=== PATIENT | female | born 1995 | race Caucasian/White ===

== ENCOUNTER 2018-12-16 14:30 | Emergency (ER) | payer SELFPAY ==
[~2018-12-16] VITALS: Ht 152.4 cm; Wt 56.7 kg
--- NOTE | 2018-12-16 15:44 | NUR ---
ED Nurse Note: PT BROUGHT IN BY [facility] FROM HOME. AOX4. PT LAYING PEACEFULLY IN BED ON THE PHONE IN NAD. NO FACIAL GRIMACING OR GUARDING NOTED. PT C/O GENERALIZED BODY ACHE, PAIN 10/10 X 3 DAYS. PT AFEBRILE AT BEDSIDE - ORAL TEMP 98.3F. FULL ROM OF ALL EXTREMITIES. PT DENIES COUGH.
[2018-12-16 15:45] VITALS: BP 110/68
--- NOTE | 2018-12-16 15:58 | Emergency Room Report ---
History of Present Illness General Chief Complaint: Flu Like Symptoms Source: Patient Present Illness HPI 23-year-old female patient presents the ER brought in by ambulance complaining of flulike symptoms for the past 3 days. Reports is been taking over-the- counter medications without relief of symptoms. Reports subjective fever at home, patient afebrile currently in the ER. Denies cough. Reports sore throat during this time. Reports generalized abdominal pain. Reports able to tolerate p.o. fluids and foods. Denies vomiting or diarrhea. Denies dysuria, hematuria. Also reports history of concussion 3 months ago, states that she continues to have pain intermittently since that time. Reports imaging of head at that time was negative, denies recent head injury or trauma. Denies vomiting or vision changes. Denies photophobia or phonophobia. Denies constipation. Reports nasal congestion during this time, states she has hx of deviated septum. States not receive flu vaccination this year. Reports generalized aches and pains. Denies recent sexual activity. Allergies: Coded Allergies: No Known Allergies (Unverified , 12/16/18) Patient History Past Medical History: see triage record Now: No Reviewed Nursing Documentation: PMH: Agreed; PSxH: Agreed Nursing Documentation-PMH Past Medical History: No Stated History Review of Systems All Other Systems: negative except mentioned in HPI Physical Exam Vital Signs Date Time Temp Pulse Resp B/P (MAP) Pulse Ox O2 Delivery O2 Flow Rate FiO2 12/16/18 14:46 98.1 92 14 107/67 100 Room Air Sp02 EP Interpretation: reviewed, normal General Appearance: well appearing, no apparent distress, alert, GCS 15, non- toxic Head: normocephalic, atraumatic, other - no sinus TTP Eyes: bilateral eye normal inspection, bilateral eye PERRL ENT: hearing grossly normal, normal pharynx, no angioedema, normal voice, TMs + canals normal, uvula midline, moist mucus membranes, nasal congestion, pharyngeal erythema, tonsillar exudate, other - Uvula midline Neck: full range of motion, no meningismus, no bony tend Respiratory: lungs clear, normal breath sounds, no rhonchi, no respiratory distress, no accessory muscle use, no wheezing, speaking full sentences Cardiovascular #1: regular rate, rhythm, no edema Gastrointestinal: normal bowel sounds, non tender, soft, no mass, non-distended , no guarding, no rebound, other - Negative Rovsing, negative obturator, negative Garces Genitourinary: no CVA tenderness Musculoskeletal: back normal, digits/nails normal, gait/station normal, normal range of motion, non-tender Neurologic: alert, oriented x3, responsive, motor strength/tone normal, sensory intact Skin: no rash Lymphatic: adenopathy Medical Decision Making PA Attestation Dr. Suarez is my supervising Physician whom patient management has been discussed with. Diagnostic Impression: Primary Impression: Urinary tract infection Additional Impressions: Flu-like symptoms Hx of concussion Tonsillitis ER Course Pt presents to ED c/o sore throat and flulike symptoms, history of concussion. DDX considered but are not limited to influenza, viral URI, pneumonia, strep throat, rhinitis, sinusitis, otitis media, otitis externa, UTI, postconcussive syndrome. no uvula deviation, no neck stiffness, no stridor, no tripoding, low suspicion for peritonsillar abscess. No focal neuro deficits, cranial nerves intact as tested, no recent injury or trauma, does not require CT head at this time. Afebrile, no meningismus, low suspicion for meningitis. VITAL SIGNS are WNL, patient is afebrile. ER COURSE: Provided with viscous lidocaine in the ER. Lungs clear to auscultation, no wheezes, rhonci or rales. patient afebrile. Low suspicion for pneumonia, will not order CXR at this time. Tonsillar exudates or pharyngeal erythema noted, no history of cough, likely tonsillitis, will provide patient with antibiotics to treat. UA shows elevated WBCs and moderate bacteria, will provide patient with medication for urinary tract infection. Provide with first dose of antibiotics in the ER. Symptomatic treatment for flulike symptoms. drink plenty of fluids. Salt water gargles for sore throat. Followup with PCP for further treatment and/or referral as needed. Advised patient follow-up with neurologist for further treatment and evaluation of symptoms. Provided with contact information for neurologist. ER precautions given. DISCHARGE: At this time pt is stable for d/c to home. Patient is resting comfortably, in no acute distress, nontoxic appearing. Patient to take medications as instructed Will provide with patient care instructions and any necessary prescriptions. Care plan and follow-up instructions provided. Patient instructed to follow-up with primary care provider in 3 - 5 days. Patient questions asked and answered. Patient reports understanding and agreement to treatment plan. ER precautions given. Patient instructed to return to ER immediately for any new or worsening of symptoms including but not limited to increasing SOB, persistent fever, intractable vomiting. - Please note that this Emergency Department Report was dictated using [employer] technology software, occasionally this can lead to erroneous entry secondary to interpretation by the dictation equipment. Labs Test 12/16/18 16:04 Urine Color Yellow Urine Appearance Slightly cloudy Urine pH 5 (4.5-8.0) Urine Specific [place] 1.025 (1.005-1.035) Urine Protein 2+ (NEGATIVE) Urine Glucose (UA) Negative (NEGATIVE) Urine Ketones 1+ (NEGATIVE) Urine Blood 4+ (NEGATIVE) Urine Nitrite Negative (NEGATIVE) Urine Bilirubin Negative (NEGATIVE) Urine Urobilinogen Normal MG/DL (0.0-1.0) Urine Leukocyte Esterase 2+ (NEGATIVE) Urine RBC 5-10 /HPF (0 - 2) Urine WBC 5-10 /HPF (0 - 2) Urine Squamous Epithelial Cells Few /LPF (NONE/OCC) Urine Bacteria Moderate /HPF (NONE) Urine Mucus Few /LPF (NONE/OCC) Urine HCG, Qualitative Negative (NEGATIVE) Last Vital Signs Date Time Temp Pulse Resp B/P (MAP) Pulse Ox O2 Delivery O2 Flow Rate FiO2 12/16/18 15:45 98.3 86 15 110/68 100 Room Air Status: improved Disposition: HOME, SELF-CARE Condition: Stable Scripts Cephalexin* (KEFLEX*) 500 Mg Capsule 500 MG ORAL EVERY 12 HOURS, #14 CAP 0 Refills Prov: Rajeev Balbuena 12/16/18 Loratadine/Pseudoephedrine (CLARITIN-D 12 HOUR TABLET) 1 Each Tab.er.12h 1 TAB ORAL EVERY 12 HOURS, #24 TAB Prov: Rajeev Balbuena 12/16/18 Guaifen/Phenyleph/Acetaminophn (Sudafed PE Pressure+Pain+Mucus) 1 Each Tablet 1 EACH PO BID, #24 TAB Prov: Rajeev Balbuena 12/16/18 Patient Instructions: Concussion, Adult, [id number], Influenza, Adult, Easy- to-Read, Tonsillitis, [id number], Urinary Tract Infection, [id number] Additional Instructions: Followup with primary care provider and followup with and./or OBGYN. Drink plenty of fluids. Take medications as directed. Follow-up with neurology specialist to discuss concussion symptoms. Salt water gargles Take Tylenol for pain and fever symptoms Drink plenty of water. Take medications as directed. Patient questions asked and answered. ER precautions given, patient instructed to return to ER immediately for any new or worsening of symptoms including but not limited to intractable vomiting, difficulty breathing, inability to eat. Rajeev Balbuena Dec 16, 2018 15:58
[2018-12-16] MEDS ORDERED: Lidocaine 2% Visc 15ml soln ORAL ONE (16:15)
[2018-12-16 16:22] LABS: BILIRUBIN, URINE NEGATIVE (NEGATIVE); GLUCOSE, URINE (UA) NEGATIVE (NEGATIVE); KETONES,URINE 1+ (NEGATIVE); LEUKOCYTE ESTERASE ,URINE 2+ (NEGATIVE); NITRITE,URINE NEGATIVE (NEGATIVE); PH,URINE 5 (4.5-8.0); PROTEIN,URINE 2+ (NEGATIVE); UROBILINOGEN,URINE NORMAL MG/DL (0.0-1.0)
[2018-12-16 16:28] LABS: APPEARANCE,URINE SLIGHTLY CLOUDY; COLOR,URINE YELLOW
[2018-12-16] MEDS ORDERED: CEPHALEXIN500 MG ORAL (16:50)
[2018-12-16] MEDS ORDERED: SUDAFED PE PRE1 EAC3 PO (16:50)
[2018-12-16] MEDS ORDERED: CLARITIN-D 121 EAC1 ORAL (16:50)
[2018-12-16 17:00] VITALS: BP 114/72
[2018-12-16] MEDS ORDERED: Cephalexin 500mg cap ORAL ONE (17:00)
--- NOTE | 2018-12-16 17:00 | NUR ---
ED Nurse Note: PT LAYING PEACEFULLY IN BED IN NAD. AOX4. PRESCRIPTIONS AND DISCHARGE PAPERWORK EXPLAINED TO PT. PT VERBALIZES UNDERSTANDING AND ALL QUESTIONS ANSWERED. PRESCRIPTIONS AND DISCHARGE PAPERWORK GIVEN TO PT AND ID WRISTBAND REMOVED. PT WALKED OUT OF ER WITH STEADY GAIT AND ALL BELONGINGS.
== END 2018-12-16 17:03 | disposition home or self-care (01) ==
LOC: EDBD 14:30 → EMR 15:19
DX: N39.0 Urinary tract infection, site not specified (principal); J03.90 Acute tonsillitis, unspecified
CPT/HCPCS: 81003; 81025; 87086; 99283

== ENCOUNTER 2019-06-10 06:21 | Emergency (ER) | payer SELFPAY ==
[~2019-06-10] VITALS: Ht 154.9 cm; Wt 56.7 kg
[~2019-06-10 06:21] MED LIST: CEPHALEXIN500 MG ORAL; CLARITIN-D 121 EAC1 ORAL; SUDAFED PE PRE1 EAC3 PO
[2019-06-10] MEDS ORDERED: NKM (06:26)
--- NOTE | 2019-06-10 06:34 | NUR ---
ED Nurse Note: Pt walked in c/o burning pain and frequency in urination x 2 days, pt also states she wants STD testing as well, pt states she had sex with a partner 2 wks ago and with other people and states she used protection but she is concerned having exposure to STD. PT reports she had vaginal itching and heavy discharge as well. will cont monitor. urine specimen obtained and sent to lab.
[2019-06-10 06:37] VITALS: BP 110/62
--- NOTE | 2019-06-10 06:41 | Emergency Room Report ---
History of Present Illness General Chief Complaint: Female Urogenital Problems Source: Patient Present Illness HPI Patient presents with dysuria and lesion by her rectum. She has had unprotected sex and is concerned about STD. No fevers. She also has some suprapubic discomfort. She took Advil earlier this morning. She complains of pain is 9/10. Mainly dysuria and burning. She has used Monistat also. Her last period was 4 days ago and she does not believe she is . She is been on and off of control. She is quite anxious about the possibility of having an STD. No fevers, chills, sore throat, nausea, vomiting, diarrhea, shortness of breath , joint pain, rashes, visual changes, headache. Allergies: Coded Allergies: No Known Allergies (Unverified , 12/16/18) Patient History Past Medical History: see triage record Social History: Denies: smoking Social History Narrative brought by sister Last Menstrual Period: 06/06/19 Now: No Reviewed Nursing Documentation: PMH: Agreed; PSxH: Agreed Nursing Documentation-PMH Past Medical History: No Stated History Review of Systems All Other Systems: negative except mentioned in HPI Physical Exam Vital Signs Date Time Temp Pulse Resp B/P (MAP) Pulse Ox O2 Delivery O2 Flow Rate FiO2 06/10/19 06:22 98.4 84 14 110/62 (78) 98 Room Air Sp02 EP Interpretation: reviewed, normal General Appearance: well appearing, no apparent distress, GCS 15 Head: normocephalic Eyes: bilateral eye normal inspection, bilateral eye PERRL ENT: moist mucus membranes Neck: full range of motion, supple Respiratory: lungs clear Cardiovascular #1: regular rate, rhythm Gastrointestinal: normal inspection, normal bowel sounds, tenderness - Reported suprapubic Rectal: other - Small papular lesion right inner gluteal region near rectum without vesicles or erythematous base Genitourinary: no CVA tenderness, other Musculoskeletal: gait/station normal Neurologic: alert, oriented x3, grossly normal Psychiatric: anxious Skin: other - See genitals Medical Decision Making Diagnostic Impression: Primary Impression: Dysuria Additional Impression: Possible exposure to STD ER Course Patient presents with dysuria suprapubic tenderness and a skin lesion by the rectum after unprotected sex. Differential includes STD, UTI, herpes, area wart amongst others. Evaluation with urinalysis with sample sent for chlamydia and gonorrhea. Patient is given analgesia here. Urinalysis clear. Patient treated with Rocephin and azithromycin. Discussed that the lesion does not look like herpes. Also discussed the need for close follow-up with an OB/ [facility] [employer]. Patient stable for outpatient observation and treatment. Laboratory Tests Test 06/10/19 06:30 06/10/19 06:33 Chlamydia trachomatis RNA Pending Neisseria gonorrhoeae RNA Pending Urine Color Yellow Urine Appearance Clear Urine pH 6 (4.5-8.0) Urine Specific [place] 1.025 (1.005-1.035) Urine Protein 1+ (NEGATIVE) H Urine Glucose (UA) Negative (NEGATIVE) Urine Ketones 1+ (NEGATIVE) H Urine Blood 3+ (NEGATIVE) H Urine Nitrite Negative (NEGATIVE) Urine Bilirubin Negative (NEGATIVE) Urine Urobilinogen Normal MG/DL (0.0-1.0) Urine Leukocyte Esterase 1+ (NEGATIVE) H Urine RBC 2-4 /HPF (0 - 2) H Urine WBC 2-4 /HPF (0 - 2) Urine Squamous Epithelial Cells Few /LPF (NONE/OCC) Urine Bacteria Few /HPF (NONE) Urine Mucus Many /LPF (NONE/OCC) H Urine HCG, Qualitative Negative (NEGATIVE) Last Vital Signs Date Time Temp Pulse Resp B/P (MAP) Pulse Ox O2 Delivery O2 Flow Rate FiO2 06/10/19 07:43 98.3 80 16 114/71 99 Room Air Status: improved Disposition: HOME, SELF-CARE Condition: Improved Scripts Phenazopyridine Hcl* (PYRIDIUM*) 100 Mg Tablet 100 MG ORAL THREE TIMES A DAY, #9 TAB Prov: Edmundo Suarez MD 06/10/19 Referrals: NOT CHOSEN IPA/,REFERRING (PCP) Edmundo Suarez MD Jun 10, 2019 06:40
[2019-06-10] MEDS ORDERED: Acetaminophen 500mg (ES) tab ORAL ONE (06:45)
[2019-06-10] MEDS ORDERED: Azithromycin 250mg tab ORAL ONE (06:45)
[2019-06-10] MEDS ORDERED: Lidocaine 1% MPF 10mg/ml 5ml INJ ONE (06:45)
[2019-06-10 06:51] LABS: APPEARANCE,URINE CLEAR; BILIRUBIN, URINE NEGATIVE (NEGATIVE); GLUCOSE, URINE (UA) NEGATIVE (NEGATIVE); KETONES,URINE 1+ (NEGATIVE); LEUKOCYTE ESTERASE ,URINE 1+ (NEGATIVE); NITRITE,URINE NEGATIVE (NEGATIVE); PH,URINE 6 (4.5-8.0); PROTEIN,URINE 1+ (NEGATIVE); UROBILINOGEN,URINE NORMAL MG/DL (0.0-1.0)
[2019-06-10 06:55] LABS: COLOR,URINE YELLOW
--- NOTE | 2019-06-10 07:15 | NUR ---
HAND-OFF: Report given to [facility].
--- NOTE | 2019-06-10 07:22 | NUR ---
ED Nurse Note: pt c/o nausea after all meds. Dr. Suarez notified. will wait for the order.
[2019-06-10] MEDS ORDERED: PHENAZOPYRIDIN100 MG ORAL (07:37)
[2019-06-10 07:43] VITALS: BP 114/71
--- NOTE | 2019-06-10 07:44 | NUR ---
ER DISCHARGE NOTE: Patient is cleared to be discharged per ERMD, pt is aox4, on room air, with stable vital signs. pt was given dc and prescription instructions, pt was able to verbalize understanding, pt id band removed without complications. pt is able to ambulate with steady gait. pt took all belongings.
== END 2019-06-10 07:44 | disposition home or self-care (01) ==
LOC: EMR 06:37
DX: R30.0 Dysuria (principal)
CPT/HCPCS: 81003; 81025; 87491; 87590; 96372; 96374; 99284; J0696